=== PATIENT | male | born 1975 | race African-American/Black ===

== ENCOUNTER 2025-05-21 06:41 | Emergency (ER) | payer OTHER ==
[2025-05-21 07:22] LABS: #Basophils 0.2 thou/uL (0.0-0.2); #Eosinophils 0.1 thou/uL (0.0-0.7); #Lymphocytes 1.1 thou/uL (1.20-3.40); #Monocytes 0.5 thou/uL (0.11-0.59); #Neutrophils 4.1 thou/uL (1.40-6.50); %Basophils 2.8 % (0.0-1.0); %Eosinophils 1.4 % (0.0-10.0); %Lymphocytes 18.2 % (21.0-51.0); %Monocytes 8.9 % (0.0-10.0); %Neutrophils 68.7 % (42.0-75.0); Hematocrit 37.4 % (42.0-52.0); Hemoglobin 13.0 g/dL (14.0-18.0); Mean Corpuscular Hemoglobin 31.0 pg (27.0-31.0); Mean Corpuscular Volume 88.9 fl (78.0-98.0); Platelet Count 190 10x3/uL (130-400); Red Blood Cell (RBC) Count 4.21 mill/uL (4.70-6.10); White Blood Cell (WBC) Count 6.0 10x3/uL (4.8-10.8)
[2025-05-21 07:38] LABS: ALT (SGPT) 36 U/L (Less than 45); AST (SGOT) 46 U/L (11-34); Albumin 3.4 g/dL (3.1-4.5); Alkaline Phosphatase 57 U/L (40-110); Anion Gap 15 mmol/L (10-20); BUN (Urea Nitrogen) 21 mg/dL (8.9-20.6); Bilirubin, Total 0.3 mg/dL (0.3-1.2); CK (CPK) 674 U/L (30-200); Calc. Creatinine Clearance 0 mL/min (70-130); Calcium 8.6 mg/dL (7.8-10.44); Carbon Dioxide 23 mmol/L (22-29); Chloride 104 mmol/L (98-107); Globulin 3.5 g/dL (2.4-3.5); Glucose 98 mg/dL (70-105); Potassium 4.9 mmol/L (3.5-5.1); Sodium 137 mmol/L (136-145)
[2025-05-21 07:39] LABS: Acetaminophen Less than 10 mcg/mL (Less than 10)
[2025-05-21] MEDS ORDERED: Ibuprofen 800 MG TAB ONE (07:52)
[2025-05-21 07:54] LABS: Salicylate Less than 8.0 mg/dL (Less than 8.0)
[2025-05-21 07:58] LABS: Cocaine Metabolite Screen Negative (Negative); THC/Cannabinoid Screen PRELIM POSITIVE (Negative); Tricyclic Screen Negative (Negative)
[2025-05-21] MEDS ORDERED: Bacitracin 1 PK ONE (08:26)
[2025-05-21] MEDS ORDERED: Boostrix 0.5 ML (Tdap) VIAL (>/=7 yrs of age) ONE (08:27)
== END 2025-05-21 08:51 ==
LOC: NAV ERS 06:41
DX: S92.311A Displaced fracture of first metatarsal bone, right foot, initial encounter for closed fracture (principal); S00.81XA Abrasion of other part of head, initial encounter; S00.411A Abrasion of right ear, initial encounter; S40.811A Abrasion of right upper arm, initial encounter; T50.915A Adverse effect of multiple unspecified drugs, medicaments and biological substances, initial encounter; W50.0XXA Accidental hit or strike by another person, initial encounter; Z23 Encounter for immunization
CPT/HCPCS: 36415; 70450; 71250; 72125; 80053; 80306; 80307; 82550; 85025; 90471; 90715; J7030